=== PATIENT | female | born 1995 | race Caucasian/White ===

== ENCOUNTER 2018-01-03 18:04 | Emergency (ER) | payer BC, MEDICAID, SELFPAY ==
[2018-01-03 18:05] VITALS: BP 145/86; PULSE 88; RESP 16; TEMP 35.8; BMI 41.5
[2018-01-03 18:59] LABS: Internal QC Validated? YES +Cl - CLEAR BKGD; Pregnancy, Urine Negative Negative
--- NOTE | 2018-01-03 19:23 | ED.VISSUMM ---
- ER Visit Summary Date of Service: 01/03/18 Chief Complaint: Dental pain History of Present Illness: The patient is a 22 F presenting for evaluation secondary to dental pain. Patient states this been getting gradually worse over the course last week it is located in her right lower mouth. Not associated with any constitutional symptoms such as fever. Patient states Tylenol does not help she is afraid to take anything else because she might be . Last menstrual cycle however was 2 weeks ago. Physical Examination: Oral exam shows no evidence of trismus. There is widespread dental decay with no evidence of focal abscess. Normal sublingual space, normal Stensen's duct, normal posterior oropharynx. Emergency Department Course and Treatment: Patient presented with dental pain. An hCG was performed was found to be negative. Patient will be treated with Naprosyn and penicillin was instructed to follow-up with a dentist as soon as possible Disposition: Discharge Impression: 1. Odontalgia 2. Dental caries This note was generated with [employer] dictation software. It may contain incorrect words, spelling, and punctuation that were not noted in review of the chart prior to signing ED Disposition - Plan for ED Patient: Disposition: Home or Assisted Living Chief Complaint: Dental Diagnosis: Pain, dental Instructions: ED Tooth Pain Prescriptions: Naproxen [Naprosyn] 500 mg PO BID PRN #20 tab Penicillin V Potassium 500 mg PO 4X/DAY #40 tab Additional Instructions: Followup with a dentist flavio
[2018-01-03] MEDS: Penicillin Vk 250 MG Tablet 500 MG PO (19:35)
[2018-01-03] MEDS: Naproxen 500 MG Tablet PO (19:35)
[2018-01-03 19:36] VITALS: PULSE 88; RESP 16
== END 2018-01-03 19:36 | disposition home or self-care (01) ==
PROVIDERS: Emergency Provider Emergency Medicine
DX: K08.89 Other specified disorders of teeth and supporting structures (principal); K02.9 Dental caries, unspecified
CPT/HCPCS: 81025; 99282

== ENCOUNTER 2018-09-24 19:31 | Emergency (ER) | payer MEDICAID, SELFPAY ==
[2018-09-24 19:33] VITALS: BP 125/81; PULSE 148; RESP 18; TEMP 36.4; O2SAT 97; BMI 40.6
[2018-09-24 19:35] VITALS: TEMP 36.4
[2018-09-24] MEDS: 0.9% Normal Saline 1,000 ML 1000 ML IV ×2 (20:40→21:52)
[2018-09-24] MEDS: proMETHazine 25 MG/ML Syringe 6.25 MG IV (20:40)
[2018-09-24] MEDS: Diphenoxylate/Atrop 1 Tablet 2 TABLET PO (20:56)
[2018-09-24 21:05] LABS: Absolute Lymphocyte Count 0.83 X10^3/ul (0.83-4.51); Absolute Neutrophil Count 9.5 X10^3/uL (2.0-7.7); Basophil# 0.01 X10^3/uL; Basophil% 0.1 % (0-1); Eosinophil# 0.02 X10^3/uL; Eosinophils% 0.2 % (0-5); Hematocrit 41.4 % (37-47); Hemoglobin 14.1 g/dl (12.0-15.0); Lymphocyte # 0.83 X10^3/ul (4.0); Lymphocyte % 7.6 % (19-41); Mean Corp Hgb Conc 34.1 g/gl (32-36); Mean Corpuscular Hgb 26.8 pg (27.0-32.0); Mean Corpuscular Volume 78.7 fL (81-99); Mean Platelet Vol. 9.4 fl (6.2-12.0); Monocyte% 4.6 % (0-10); Neutrophil # 9.52 X10^3/uL (2.7-7.7); Neutrophil % 87.4 % (47-70); Platelet Count 280 K/mm3 (150-450); RBC Distribution Width CV 14.2 % (11.6-14.6); Red Blood Count 5.26 M/mm3 (4.2-5.4); White Blood Count 10.9 K/mm3 (4.4-11.0)
[2018-09-24 21:14] LABS: POSITIVE COUNT NO; POSITIVE DIFFERENTIAL NO; POSITIVE MORPHOLOGY NO
[2018-09-24 21:20] LABS: Anion Gap 8 (5-15); BUN 6 mg/dL (7-18); BUN/Creat Ratio 10.6 RATIO (10-20); Calcium,Total 8.5 mg/dL (8.5-10.1); Chloride 108 mmol/L (98-107); Creatinine, Serum 0.57 mg/dL (0.55-1.02); EST Glomerular Filtration Rate 143 mL/min (>60); Est Glom Filt Rate - Afr Amer 173 mL/min (>60); Estimated Creatinine Clearance 123.48 ml/min; Glucose 108 mg/dL (74-106); Potassium 3.9 mmol/L (3.5-5.1); Sodium Level 137 mmol/L (136-145)
[2018-09-24 21:53] VITALS: BP 102/61; PULSE 110; RESP 16; O2SAT 98
--- NOTE | 2018-09-24 22:26 | ED.VISSUMM ---
- ER Visit Summary Date of Service: 09/24/18 Chief Complaint: [Nausea vomiting and diarrhea] History of Present Illness: The patient is a 23 F [presents to the emergency department with complaint of vomiting that started this morning. Patient then developed diarrhea and has had about 12 episodes of diarrhea. Patient describes some intermittent abdominal pain and cramping. Patient states she cannot keep anything down. Patient had a low-grade fever at home up to 99. Patient denies any recent antibiotic usage. Patient denies any sick contacts. Patient tells me that she is 12 weeks . Patient has had an ultrasound of the that was performed on September 15 and everything looked well at that time. Patient's not had any vaginal bleeding.] Physical Examination: [HEENT-PERRLA, EOMI. Cranial nerves II through XII grossly intact. TMs clear. Mucous membranes moist. No adenopathy. Cardiovascular-regular rate and rhythm without murmur or ectopy Lungs-clear to auscultation, chest wall stable without crepitus or subcu emphysema Abdomen-normoactive bowel sounds, soft, nontender, no rebound or rigidity, no peritoneal signs. Extremities-intact ?4, normal range of motion, normal pulses, atraumatic] Test Results: [CBC with differential obtained showed a white count of 10.9, hemoglobin 14, hematocrit 41, platelets 280. Chemistries unremarkable.] Emergency Department Course and Treatment: [Patient received 2 units of normal saline as well as Zofran and Imodium. Patient had no further vomiting or diarrhea. She was feeling improved. Her tachycardia improved.] Treatment Plan: [Patient will be given a prescription for Phenergan and advised to use Imodium as needed for the diarrhea. Patient to follow-up with primary care physician in 3-5 days] Disposition: [Discharged home in stable condition] Impression: [Viral gastroenteritis] This note was generated with [employer] dictation software. It may contain incorrect words, spelling, and punctuation that were not noted in review of the chart prior to signing ED Disposition - Plan for ED Patient: Chief Complaint: Nausea/Vomiting/Diarrhea Referrals: Chey Fitch MD [Primary Care Provider] -
--- NOTE | 2018-09-24 22:29 | ED.DEP ---
ED Disposition - Plan for ED Patient: Chief Complaint: Nausea/Vomiting/Diarrhea Instructions: ED Gastroenteritis Viral Prescriptions: proMETHazine tablet [Phenergan] 25 mg PO Q6H PRN PRN #10 tab PRN Reason: Nausea Referrals: Chey Fitch MD [Primary Care Provider] - 3-5 Days
[2018-09-24 22:30] VITALS: BP 106/68; BP 84/51; BP 99/53; PULSE 105; PULSE 120; PULSE 122
[2018-09-24] MEDS: 0.9% Normal Saline 1,000 ML 999 ML IV (22:41)
[2018-09-24 23:45] VITALS: BP 108/71; PULSE 88; RESP 16; O2SAT 97
[2018-09-24 23:55] VITALS: BP 108/59; BP 86/48; BP 97/66; PULSE 114; PULSE 117; PULSE 95
[2018-09-25] MEDS: 0.9% Normal Saline 1,000 ML 999 ML IV (00:12)
[2018-09-25 00:48] VITALS: BP 96/58; PULSE 98; RESP 16; O2SAT 98
--- OUTSIDE RECORDS SUMMARY | 2018-11-10 15:26 | XMS RPT_ITS ---
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 ENCOUNTER GUARANTOR PAYER SUBSCRIBER SOURCE 09/24/2018 TAHIRA C Primary TAHIRA C Bliss [id number] Insurance:CARESOURCEP BRIGGSDOB: [facility] Number: [id number] Hospital [id number]: [phone] [id number] Repository [phone] () Date:2018-09-24[address]ATTN: [place] [address]MY: 09/24/2018 Secondary NOT GIVENUNK Bliss Insurance:SELF PAY [facility] Number: Effective Repository Date:2018-09-24 08/24/2018 TAHIRA C Primary NOT GIVENUNK Bliss [id number] Insurance:SELF PAY [facility] [id number]: (218) Number: Effective Repository [phone] () Date:2018-08-24 01/03/2018 TAHIRA C Primary CRYSTAL K Bliss [id number] Insurance:ANTHEMPolic BRIGGSDOB: [facility]: [id number] Repository [place] [address]Tnb: Date:[id number], [place] () [address]: 01/03/2018 Secondary TAHIRA C Dhruv Insurance:CARESOURCEP BRIGGSDOB: [facility] Number: [id number] Hospital [id number] Repository Date:2018-01-03[address]ATTN: [facility]S [facility] [place] [address]RV: 01/03/2018 Tertiary NOT GIVENUNK Bliss Insurance:SELF PAY [facility] Number: Effective Repository Date:2018-01-03 12/08/2017 TAHIRA Vines Primary CRYSTAL K [facility] BRIGGSDOB: [facility] y Number: Effective [id number] Date:2017-10-13 [address]RD Repository [place], [place] [id number] [address]Tel: [phone] Name:Waldo Wu [place] [phone] () [phone]: () ()
== END 2018-09-25 00:57 | disposition home or self-care (01) ==
LOC: ED 20:48
PROVIDERS: Emergency Provider Emergency Medicine; Family Provider Obstetrics & Gynecology; PCP Obstetrics & Gynecology
DX: A08.4 Viral intestinal infection, unspecified (principal); O26.891 Other specified pregnancy related conditions, first trimester; Z3A.12 12 weeks gestation of pregnancy
CPT/HCPCS: 80048; 85025; 96361; 96374; 99284; J7030

== ENCOUNTER 2018-11-30 07:44 | Emergency (ER) | payer OTHER, MEDICAID, SELFPAY ==
[2018-11-30 07:45] VITALS: BP 145/79; PULSE 97; RESP 14; TEMP 36.8; O2SAT 99; BMI 42.1
--- NOTE | 2018-11-30 08:23 | ED.VISSUMM ---
- ER Visit Summary Date of Service: 11/30/18 Chief Complaint: fall, 22 weeks History of Present Illness: The patient is a 23 F presents for evaluation after a fall this morning. Patient states she was getting out of her truck at work and slipped on the ice, falling and landing on her left hip. She was able to get up and ambulate afterwards. She is complaining of left hip pain. It is dull and aching. Patient is 22 weeks and thus was encouraged to come in for further evaluation. Patient denies any loss of consciousness, loss of use of her lower extremities, neck pain, back pain, or any other complaints. She denies any abdominal pain, nausea or vomiting, vaginal bleeding or discharge. She has been feeling the baby move. Physical Examination: Vital signs: afebrile, initial blood pressure 145/79, repeat 107/61, no hypoxia on room air General: well nourished, well developed, in no distress Skin: warm, dry, no rash, no pallor HEENT: normocephalic and atraumatic; PERRL, EOMI, moist mucous membranes Cardiovascular: regular rate and rhythm without murmurs, no peripheral edema, 2+ pulses all distal extremities Respiratory: No increased work of breathing, lungs are clear to auscultation bilaterally, no rales, rhonchi or wheezing Abdominal: Abdomen is soft, nontender with normoactive bowel sounds, no guarding or rebound, no masses MSK: Moves all extremities, no deformities, normal strength, 2 small abrasions on the left hip, no hematoma or ecchymosis, full active range of motion of the hip, no tenderness with logroll, full internal and external rotation of the hip. Distal sensation, motor and pulses intact Neuro: Awake and alert, oriented ?4. No facial droop, sensation and motor function intact and symmetric Heart tones 147 Test Results: [] Emergency Department Course and Treatment: She was given Tylenol for pain. Patient has no findings on exam that require imaging or further workup. Patient has good heart tones of 147. She was discussed with COMMERCIAL PROJECT MANAGER simplex operator Jennifer Maravilla the [facility], and patient will follow up with them if any worsening of her condition. Worker's Comp. paperwork filled out and patient was discharged home. Treatment Plan: [] Disposition: [] Impression: Left hip contusion status post fall, 22 weeks This note was generated with [employer] dictation software. It may contain incorrect words, spelling, and punctuation that were not noted in review of the chart prior to signing ED Disposition - Plan for ED Patient: Disposition: Home or Assisted Living Instructions: ED Mechanical Fall, ED Contusion Hip Referrals: Chey Fitch MD [STAFF PHYSICIAN] - Jennifer Maravilla CNM [Certified Nurse Apparel Merchandiser] - As Needed Additional Instructions: Use Tylenol as needed for pain. Please follow-up with the women's center if you have any concern about your , including abdominal pain, vaginal bleeding or spotting, pelvic pain or any other concerns. If you have any worsening of your condition or any new concerning symptoms, please return immediately to the emergency department for another evaluation.
[2018-11-30 09:13] VITALS: BP 107/61
[2018-11-30] MEDS: Acetaminophen 325 MG Tablet 650 MG PO (09:14)
--- NOTE | 2018-11-30 10:46 | ED.RN ---
DISCHARGE INSTRUCTIONS GIVEN TO AND REVIEWED WITH PATIENT, PATIENT DENIES QUESTIONS OR CONCERNS AND VOICES UNDERSTANDING OF DISCHARGE INSTRUCTIONS. PT AMBULATES OUT OF ROOM WITHOUT DIFFICULTY.
== END 2018-11-30 10:46 | disposition home or self-care (01) ==
PROVIDERS: Emergency Provider Emergency Medicine
DX: S70.02XA Contusion of left hip, initial encounter (principal); O9A.212 Injury, poisoning and certain other consequences of external causes complicating pregnancy, second trimester; W00.0XXA Fall on same level due to ice and snow, initial encounter; Y93.9 Activity, unspecified; Y92.89 Other specified places as the place of occurrence of the external cause; Y99.0 Civilian activity done for income or pay; Z3A.22 22 weeks gestation of pregnancy
CPT/HCPCS: 99283

== ENCOUNTER 2019-04-11 18:40 | Inpatient (IN) | payer OTHER, MEDICAID, SELFPAY ==
[2019-04-11 18:39] VITALS: BMI 45.1
[2019-04-11] MEDS: Lactated Ringers 1,000 ML 50 ML IV ×3 (18:50→20:10)
[2019-04-11 19:14] LABS: Absolute Neutrophil Count 8.9 X10^3/uL (2.0-7.7); Basophil# 0.01 X10^3/uL; Basophil% 0.1 % (0-1); Eosinophil# 0.15 X10^3/uL; Eosinophils% 1.2 % (0-5); Hematocrit 38.3 % (37-47); Hemoglobin 12.5 g/dl (12.0-15.0); Lymphocyte % 18.5 % (19-41); Mean Corp Hgb Conc 32.6 g/gl (32-36); Mean Corpuscular Hgb 25.1 pg (27.0-32.0); Mean Corpuscular Volume 76.9 fL (81-99); Mean Platelet Vol. 9.7 fl (6.2-12.0); Monocyte# 0.97 X10^3/uL; Monocyte% 7.8 % (0-10); Neutrophil # 8.94 X10^3/uL (2.7-7.7); Neutrophil % 71.9 % (47-70); POSITIVE COUNT NO; POSITIVE DIFFERENTIAL NO; POSITIVE MORPHOLOGY NO; Platelet Count 262 K/mm3 (150-450); RBC Distribution Width CV 15.2 % (11.6-14.6); RBC Distribution Width SD 42.3 fl (35.1-43.9); Red Blood Count 4.98 M/mm3 (4.2-5.4); White Blood Count 12.4 K/mm3 (4.4-11.0)
--- NOTE | 2019-04-11 19:31 | PCM.HP.OB ---
History Date of Admission: 04/11/19 Final DIOGENES: 04/06/19 Final DIOGENES Source: US <20 weeks Gestational age: 40 Weeks and 5 Days History of this : This is a 23 year-old, G 2P1 at 40.5 weeks gestation presents to labor and delivery complaining of contractions and questionable leaking of fluid at approximately 5:30 PM on 04/11/2019. Is no other complaints today. Was found to be 5 cm with regular contractions. Patient admitted for labor. Allergies orange juice Adverse Reaction (Verified 04/11/19 19:14) Nausea/Vom/Diarrhea Smoking Status: Never smoker Alcohol: None Number of Fetus(es): 1 Heart Tracin bpm, moderate variability, positive accelerations, no decelerations. Category 1 reactive TOCO Analysis: Every 2 to 4 minutes History Past Pregnancies: Past Pregnancies Delivery Date Name GA/Weeks Outcome Route Weight Infant Gender Labor Length Anesthesia Delivery Location Provider FOB Labs: A negative, hep B negative, HIV negative, syphilis negative, rubella immune, GBS negative Expected Infant Delivery Method: Spontaneous Vaginal Review of Systems Constitutional: Denies: Anorexia Gastrointestinal: Reports: Abdominal Pain - from ctx Physical Exam General: Alert, Oriented x3 Abdomen: Soft, Non-Distended, Gravid Neurological: Cranial nerves II-XII grossly intact NETWORK SYSTEMS ADMINISTRATOR: Normal external genitalia Estimated gestational size: Appropriate for gestational size Presentation: Cephalic Cervix Dilation (cm): 5 Station: -1 Effacement (%): 80 Assessment/Plan All Active Problems Physical exam, pre-employment (Acute) This is a 23 year-old, G 2P1 at 40.5 weeks gestation presents in labor. Admit to labor and delivery Monitor heart rate and toco Epidural or nitrous oxide for pain management if requested AROM performed clear fluid moderate amount Anticipate normal spontaneous vaginal delivery
[2019-04-11] MEDS: fentaNYL-bupivacaine (epidural) 100 ML BAG EPIDURAL (20:23)
[2019-04-11] MEDS: Oxytocin 30 units/NS 500 ml 30 UNITS/500 ML IV.SOLN IV (22:34)
[2019-04-12] MEDS: Lactated Ringers 1,000 ML 50 ML IV
[2019-04-12] MEDS: fentaNYL-bupivacaine (epidural) 100 ML BAG EPIDURAL (00:46)
[2019-04-12] MEDS: Oxytocin 30 units/NS 500 ml 30 UNITS/500 ML IV.SOLN 334 UNITS IV (02:19)
--- NOTE | 2019-04-12 02:33 | PCM.OPRPT ---
Vaginal Delivery Maternal Presentation: Active Labor Amniotic Membrane Rupture Type: Artificial Amniotic Fluid Description: Clear Final DIOGENES: 04/06/19 Final DIOGENES Source: US <20 weeks Gestational age: 40 Weeks and 6 Days Date of Procedure: 04/12/19 Pre-Operative Diagnosis: Term gestatation, active labor Post-Operative Diagnosis: same, live female Surgery/ Procedure Performed: Spontaneous Vaginal Delivery Type of Anesthesia: Epidural Description of Procedure: Normal spontaneous vaginal delivery without complication. Infant was born with good maternal efforts and gentle downward traction. Delayed cord clamping was performed while infant was resting on maternal abdomen. Placenta delivered without complication Presentation: Vertex Placental Delivery Description: Spontaneous Placenta Disposition: [facility] Cord Vessel Description: 3 Vessels Cord Entanglement: None Drain: Narvaez to straight drain Estimated Blood Loss: 100 A gender: Female (1 minute): 8 (5 minute): 9 Episiotomy Description: None Laceration: Vaginal Extension/lac, 1st degree - repaired with 3-0 Rapide Medications given after delivery: IV Pitocin Complications: None
[2019-04-12] MEDS: Oxytocin 30 units/NS 500 ml 30 UNITS/500 ML IV.SOLN 167 UNITS IV (02:50)
[2019-04-12 05:30] VITALS: BP 98/57; PULSE 98; RESP 20; TEMP 37.4
[2019-04-12] MEDS: 0.9% Saline Lock 10 ML Syringe IV (05:48)
[2019-04-12 08:23] VITALS: BP 110/61; PULSE 96; RESP 16; TEMP 36.3; O2SAT 98
[2019-04-12] MEDS: Ibuprofen 600 MG Tablet PO ×2 (08:31→22:16)
[2019-04-12 12:20] VITALS: BP 101/55; PULSE 78; RESP 16; TEMP 36.6; O2SAT 97
[2019-04-12 15:21] VITALS: BP 115/64; PULSE 91; RESP 16; TEMP 36.5; O2SAT 98
[2019-04-12 21:02] VITALS: BP 111/58; PULSE 80; RESP 16; TEMP 36.2; O2SAT 96
[2019-04-12] MEDS: Acetaminophen 500 MG Tablet 1000 MG PO (21:08)
[2019-04-12 23:40] VITALS: BP 101/54; PULSE 87; RESP 17; TEMP 37; O2SAT 99
[2019-04-13 08:51] VITALS: BP 96/56; PULSE 59; RESP 16; TEMP 36.3
[2019-04-13 14:00] VITALS: BP 105/64; PULSE 69; RESP 16; TEMP 36.4
--- NOTE | 2019-04-13 14:04 | PCM.PN.OB ---
Subjective: pain well controlled, average lochia. - Physical Exam General: Alert, Cooperative, No apparent distress Vital Signs Temp Pulse Resp BP Pulse Ox 97.3 F L 59 L 16 96/56 L 99 04/13/19 08:51 04/13/19 08:51 04/13/19 08:51 04/13/19 08:51 04/12/19 23:40 Oxygen Delivery Method Room Air Weight: 112.037 kg Body Mass Index (BMI) 45.1 Intake and Output for Last 24 Hours 04/11/19 04/12/19 04/13/19 23:59 23:59 23:59 Intake Total 3747 / 3747 Output Total 2900 / 2900 Balance 847 / 847 Medical Necessity - Tobacco Use Smoking Status: Never smoker Assessment/Plan All Active Problems Physical exam, pre-employment (Acute) day #1 status post vaginal delivery. Patient is doing well, routine instructions and care. Social service consult was pending when I saw the patient this morning. Patient continues to work on breast-feeding. Follow-up in the office in 1-2 and 6 weeks or as needed.
--- NOTE | 2019-04-13 14:06 | DCINST_ITS ---
Discharge Diet: No Restrictions Discharge Activity: Return to Normal Activity, May not drive while taking narcotic pain medications., May Shower May resume sexual activity in: 4-6 weeks Additional Activity Instructions:: Nothing in the vagina for 4-6 weeks. You may return to work/school in 6 weeks. Call your doctor if your incision/area has: Continuous Slow Oozing, Sudden Increased Bleeding, Increased Pain/ Swelling, Increased Redness, Foul Smelling Discharge Additional Instructions: If you experience any of the following, contact your healthcare provider. * Bleeding that soaks a pad every hour for 2 hours * Fever 100.4 or higher * Unrelieved incision or abdominal pain * Swelling, redness, discharge or bleeding from your incision or episiotomy site * Your incision begins to separate * Problems urinating (including inability to urinate or burning while urinating). * Visual changes * Severe headache * Flu-like symptoms * Pain or redness in one of both of your breasts * Pain, warmth, tenderness or swelling in your legs, especially the calf area * Frequent nausea and vomiting * Symptoms of depression or anxiety If you experience any of the following, call 911 or go to the nearest Emergency Room. * Chest pain * Problems breathing * Seizure activity * Partial or complete paralysis of a body part, slurred speech, weakness or drooping of the face, or a sudden inability to walk or hold your balance Allergies/Adverse Reactions: Allergies orange juice Adverse Reaction (Verified 04/11/19 19:14) Nausea/Vom/Diarrhea Medications to take at Discharge Ibuprofen [Motrin] 600 mg PO Q6H PRN #60 tab 04/13/19 The following prescriptions were given: Ibuprofen [Motrin] 600 mg PO Q6H PRN #60 tab PRN Reason: Pain Transmission Status: Pending to [id number] Please Follow Up With: Effie Faulkner MD - [phone] When: Call to make an appointment in our office in 1-2 and 6 weeks. Primary Care Physician: Care Physician,No Primary [Primary Care Provider] - Test Results: Test results from this visit will be discussed in further detail at your follow- up appointment, if applicable.
--- NOTE | 2019-04-22 18:36 | NURSING ---
Mother had consult and was doing well. Mother and baby are scheduled again friday for another weight check. She really liked ernst on nights, she said she really to her time and helped her understand her breast pump.
== END 2019-04-13 14:55 | disposition home or self-care (01) | DRG 807 ==
LOC: WPOUT 18:43
PROVIDERS: Admitting Provider Obstetrics & Gynecology; Referring Provider Obstetrics & Gynecology; Visit Provider Obstetrics & Gynecology
DX: O70.0 First degree perineal laceration during delivery (principal); Z37.0 Single live birth; Z3A.40 40 weeks gestation of pregnancy
CPT/HCPCS: 59025; 59050; 85025; 86850; 86900; 99218; J7120; A4216; G0378

== ENCOUNTER → 2019-12-20 15:09 | Outpatient (CLI) | payer MEDICAID, SELFPAY ==
[2019-12-20 15:09] VITALS: BMI 45.1
--- NOTE | 2019-12-20 15:10 | RAD_ITS ---
STUDY: X-RAY - LEFT KNEE REASON FOR EXAM: Female, 24 years old. No injury, pain TECHNIQUE: 4 view(s) of the knee. COMPARISON: Comparison is made with prior examination dated September 14, 2010. FINDINGS: Normal visualized distal femur. Normal visualized proximal tibia and fibula. Normal proximal tibiofibular articulation. Normal medial femorotibial compartment. Normal lateral femorotibial compartment. Normal patellofemoral articulation. The soft tissue structures are unremarkable. RAD/Knee 4 or More Views IMPRESSION: Normal x-ray examination of the knee. Electronically Signed: Maverick Trimble, at 15:45 EDT , Service support ,
== END ==
PROVIDERS: Referring Provider Physician Assistant; Visit Provider Physician Assistant
DX: M25.561 Pain in right knee (principal)
CPT/HCPCS: 73564

== ENCOUNTER 2020-05-22 07:31 | Emergency (ER) | payer MEDICAID, SELFPAY ==
[2020-05-20 11:55] VITALS: BMI 45.1
[2020-05-22 07:32] VITALS: BP 131/78; PULSE 98; RESP 18; TEMP 36.6; O2SAT 95; BMI 47.2
--- NOTE | 2020-05-22 08:07 | ED.VIS.GEN ---
History of Present Illness Chief Complaint: Ear Problem Informant: Patient Narrative: Patient presents emergency department with pain in the right ear. Patient states that on Friday she [facility] and was diagnosed with an ear infection. She was placed on medications that she cannot recall the specifics regarding them. From review of the chart, I see she was diagnosed with otitis media and otitis externa. She was placed on amoxicillin 1000 mg twice a day and Otosporin otic. She states she has been using Tylenol Motrin but cannot control the pain. No fevers. No drainage from the ear. Past Medical History - Allergies and Home Meds Allergies/Adverse Reactions: Allergies orange juice Adverse Reaction (Verified 05/22/20 07:35) Nausea/Vom/Diarrhea Primary Care Physician: Care Physician,No Primary [Primary Care Provider] - Smoking Status: Never smoker Review of Systems General: Denies: Chills, Fever, Sweats Eyes: Denies: Visual changes - bilaterally, Diplopia ENT: Reports: Right ear pain. Denies: Rhinorrhea, Sore throat Cardiovascular: Denies: Chest pain, Palpitations Respiratory: Denies: Dyspnea, Cough, Dyspnea on exertion Gastrointestinal: Denies: Abdominal pain, Nausea, Vomiting, Diarrhea, Melena, Hematochezia Genitourinary: Denies: Dysuria, Hematuria, Frequency Musculoskeletal: Denies: Back pain, Extremity Pain Skin: Denies: Rash, Wounds Neurological: Denies: Headache, Weakness, Numbness Physical Exam Vital Signs/Narrative: Vital Signs Temp Pulse Resp BP Pulse Ox 05/22/20 07:32 97.8 F 98 18 131/78 H 95 Inital Vital Signs reviewed: Yes General: Well nourished, Well developed, No Acute Distress Head: Normocephalic, Atraumatic Eyes: Perrl, EOMI ENT: Moist mucous membranes, No rhinorrhea, - - Ear canal is swollen with some mild debris. I can still visualize the tympanic membrane. It is erythematous and bulging. There is not appear to be any rupture at this time. There is no mastoid tenderness. Neck: Supple, Nontender Cardiovascular: Regular rate, Regular rhythm, No murmurs Respiratory: No distress, CTA bilaterally, Chest nontender Abdomen: Soft, Nontender, Nondistended, Normal bowel sounds Back: Nontender, Normal Inspection Extremities: Nontender, No edema Skin: Normal color, No rash Neurological: Alert, Oriented x3, Cranial nerves II-XII grossly intact, Normal Strength, Normal Sensation Psychological: Normal affect, Normal Mood Diagnostic/Tx/Re-eval - Medical Decision Making Patient should continue her antibiotics. I can write for a few [place]. ED Disposition - Plan for ED Patient: Disposition: Home or Assisted Living Diagnosis: Otitis externa of right ear, Otitis media, right, Acute pain of right ear Instructions: ED Otitis Externa, ED Otitis Media Antibiotic Treatment Adult Prescriptions: Hydrocodone Bitart/Apap 5-325 [[place] 5MG-325MG] 1 tablet PO Q4H PRN PRN 2 Days #10 tablet PRN Reason: Pain Transmission Status: Received by [id number]
[2020-05-22] MEDS: HYDROcodone Bitartrate/Apap 5/325 Tablet PO (08:16)
== END 2020-05-22 08:25 | disposition home or self-care (01) ==
LOC: ED 08:23
PROVIDERS: Emergency Provider Emergency Medicine; PCP Internal Medicine
DX: H60.91 Unspecified otitis externa, right ear (principal); H66.91 Otitis media, unspecified, right ear
CPT/HCPCS: 99283

== ENCOUNTER → 2020-09-18 13:52 | Outpatient (CLI) | payer OTHER, MEDICAID, SELFPAY ==
[2020-08-01 13:16] VITALS: BMI 46.5
== END ==
PROVIDERS: PCP Internal Medicine; Referring Provider Physician Assistant; Visit Provider Physician Assistant
DX: R68.89 Other general symptoms and signs (principal)
CPT/HCPCS: 87635; U0003

== ENCOUNTER → 2021-06-29 14:22 | Outpatient (CLI) | payer MEDICAID, SELFPAY ==
[2021-06-29 14:38] LABS: Hematocrit 41.9 % (37-47); Hemoglobin 13.5 g/dL (12.0-15.0); Mean Corp Hgb Conc 32.2 g/dL (32-36); Mean Corpuscular Hgb 25.4 pg (27.0-32.0); Mean Corpuscular Volume 78.9 fL (81-99); Mean Platelet Vol. 8.7 fl (6.2-12.0); Platelet Count 337 K/mm3 (150-450); RBC Distribution Width CV 14.2 % (11.6-14.6); RBC Distribution Width SD 40.7 fl (35.1-43.9); Red Blood Count 5.31 M/mm3 (4.2-5.4); White Blood Count 10.3 K/mm3 (4.4-11.0)
[2021-06-29 14:57] LABS: Hemoglobin A1c 5.2 % (3.8-5.6)
[2021-06-29 15:35] LABS: hCG Titer Quant., Serum < 1 mIU/mL (1-3)
[2021-06-29 15:41] LABS: Estradiol 121.6 pg/mL; Follicle Stimulating Hormone 1.5 mIU/mL; Luteinizing Hormone 0.8 mIU/mL; Prolactin 8.7 ng/mL; T4 Free Direct 0.83 ng/dL (0.76-1.46); Thyroid Stim Hormone (TSH) 1.78 uIU/mL (0.358-3.74)
== END ==
PROVIDERS: PCP Internal Medicine; Visit Provider Obstetrics & Gynecology
DX: N93.9 Abnormal uterine and vaginal bleeding, unspecified (principal)
CPT/HCPCS: 36415; 82670; 83001; 83002; 83036; 84146; 84402; 84439; 84443; 84702; 85027

== ENCOUNTER → 2023-04-25 | Outpatient (CLI) | payer MEDICAID, SELFPAY ==
[2023-05-02 15:59] LABS: HPV Reflexed? NOT INDICATED
== END | disposition home or self-care (01) ==
LOC: LABSPEC 14:43
PROVIDERS: PCP Internal Medicine; Referring Provider Obstetrics & Gynecology; Visit Provider Obstetrics & Gynecology
DX: Z12.4 Encounter for screening for malignant neoplasm of cervix (principal)
CPT/HCPCS: 88175; G0145

== ENCOUNTER 2024-04-17 08:39 | Outpatient (CLI) | payer MEDICAID, SELFPAY ==
[2024-04-17 08:53] VITALS: BP 131/72; PULSE 94; PULSE 96; RESP 15; TEMP 36.5; O2SAT 97; O2SAT 99
--- NOTE | 2024-04-17 10:11 | US_ITS ---
STUDY: OBSTETRICAL ULTRASOUND - BIOPHYSICAL PROFILE REASON FOR EXAM: Female, 28 years old decreased movement LMP: Unknown. PRIOR ULTRASOUND: None. TECHNIQUE: Transabdominal TECHNICAL QUALITY: Adequate. FINDINGS: There is a single intrauterine fetus. The fetus is in a cephalic presentation. There is demonstrated cardiac activity with a heart rate of 135 bpm. There is a normal amniotic fluid volume. The largest amniotic fluid pocket measures 5.1 cm. The amniotic fluid index (SONIYA) is 13.6 cm. The placenta is anterior in location and is not low lying. There are Grade 1 placental changes. age by current US: 32 weeks, 1 days. DIOGENES by current US: 06/11/2024. BIOPHYSICAL PROFILE: Breathing Movements (FBM): 2 Gross Body Movements (GBM): 2 Tone (FT): 2 Amniotic Fluid Volume (AFV): 2 TOTAL SCORE: US/Biophysical Prof W/O Non Stres IMPRESSION: Normal biophysical profile of 05/20. Electronically Signed: Miguel Bello MD at 11:02 EDT ,
[2024-04-17 10:12] VITALS: BMI 50.1
--- NOTE | 2024-04-17 10:55 | OB.TRI.HP_ITS ---
HPI - General General Date of Admission: 04/17/24 Date of Service: 04/17/24 Chief Complaint: Repeat testing HPI Narrative TAHIRA JACKSON, is a 28 F who presents repeat BPP. 03/22 in office yesterday Today 05/20 with reactive NST Maternal Data Information Final DIOGENES: 06/11/24 Gestational age: 32+1 PFSH PFSH Medical History Seasonal allergies Home Medications ?Medication ?Instructions ?Recorded ?Last Taken ?Type aspirin 81 mg tablet,delayed 81 mg PO DAILY 04/17/24 04/16/24 History release vit no.133-ferrous tab PO 04/17/24 04/16/24 History fumarate 28 mg-folic acid 800 mcg tablet () Allergy/AdvReac Type Severity Reaction Status Date / Time orange juice AdvReac Nausea/Vom/ Verified 04/17/24 10:14 Diarrhea Family History Brother Asthma Sister Asthma Anxiety Depression Mother Anxiety Arthritis Grandmother Breast cancer Aunt CVA (cerebral vascular accident) Grandfather Heart disease Surgical History History of cholecystectomy History of wisdom tooth extraction Social History household members: significant other and children number of children: 2 current occupational status: employed current occupation: [email or web address] history of recent travel: No sexually active: Yes Smoking Status: Never smoker alcohol intake: never substance use type: does not use what type of physical activity do you participate in: walking seatbelt use: always do you feel safe at home: Yes additional social history: Signifigant other - [place] History 4 Elective abortions Hx Para 2 Spontaneous abortions Hx # Term Pregnancies Ectopic pregnancies Hx # Pregnancies Multiple births # of living children 2 Past Pregnancies Del. Date Name GA/Weeks Outcome Route Bth Weight Infant Gen Labor Lgth Anesthesia Del Locatn Provider FOB 03/27/17 [place] 04/12/19 [place] NST FHR Rate Baby A Baseline: 135 Variability:: Moderate Accelerations:: 15 x 15 Decelerations:: None NST Reactive:: Yes FHR Category:: Category I Assessment & Plan (1) 32 weeks gestation of : (2) Abnormal test: PLAN: Repeat BPP 05/20 PLAN: Plan Weekly nsts in office
== END 2024-04-17 10:45 | disposition home or self-care (01) ==
LOC: WPOUT 08:41 → WP 08:42
PROVIDERS: PCP Internal Medicine; Referring Provider Obstetrics & Gynecology; Visit Provider Obstetrics & Gynecology
DX: O28.9 Unspecified abnormal findings on antenatal screening of mother (principal); Z79.82 Long term (current) use of aspirin; Z3A.32 32 weeks gestation of pregnancy
CPT/HCPCS: 59025; 59050; 76819; 99221; G0378

== ENCOUNTER 2024-05-27 19:17 | Inpatient (IN) | payer MEDICAID, SELFPAY ==
--- NOTE | 2024-05-27 19:31 | HP.PCM.OB_ITS ---
HPI - General General Date of Admission: 05/27/24 HPI Narrative TAHIRA JACKSON, is a 28 F who presents for scheduled induction of labor for Obesity (pregravid BMI 48), and IUGR. EFW 6%. Maternal Data Information DIOGENES Calculator Estimated Delivery Date Method Current WG Current Estimate 06/11/24 Manual 37w 6d PFSH PFSH Medical History Seasonal allergies Home Medications ?Medication ?Instructions ?Recorded ?Last Taken ?Type aspirin 81 mg tablet,delayed 81 mg PO DAILY 04/17/24 04/16/24 History release vit no.133-ferrous tab PO 04/17/24 04/16/24 History fumarate 28 mg-folic acid 800 mcg tablet () Allergy/AdvReac Type Severity Reaction Status Date / Time orange juice AdvReac Nausea/Vom/ Verified 04/17/24 10:14 Diarrhea Family History Brother Asthma Sister Asthma Anxiety Depression Mother Anxiety Arthritis Grandmother Breast cancer Aunt CVA (cerebral vascular accident) Grandfather Heart disease Surgical History History of cholecystectomy History of wisdom tooth extraction Social History household members: significant other and children number of children: 2 current occupational status: employed current occupation: [employer] history of recent travel: No sexually active: Yes Smoking Status: Never smoker alcohol intake: never substance use type: does not use what type of physical activity do you participate in: walking seatbelt use: always do you feel safe at home: Yes additional social history: Signifigant other - Zenas History 4 Elective abortions Hx Para 2 Spontaneous abortions Hx # Term Pregnancies Ectopic pregnancies Hx # Pregnancies Multiple births # of living children 2 Past Pregnancies Del. Date Name GA/Weeks Outcome Route Bth Weight Gen Labor Lgth Anesthesia Del Locatn Provider FOB 03/27/17 [place] 04/12/19 [place] NST FHR Rate Baby A Baseline: 140 Variability:: Moderate Accelerations:: 15 x 15 Decelerations:: None NST Reactive:: Yes ROS Eyes Eyes: Denies blurry vision, change in vision or spots in vision ENT HEENT: Denies dizziness or headache(s) Cardiovascular Cardiovascular: Denies abdominal pain, chest pain or dyspnea Respiratory/Chest Respiratory/Chest: Denies cough, dyspnea, shortness of breath at rest or shortness of breath with exertion Gastrointestinal Gastrointestinal: Denies abdominal pain, diarrhea or vomiting Genitourinary Genitourinary: Denies change in urinary stream, difficulty urinating or dysuria Musculoskeletal Musculoskeletal: Reports none Integumentary Integumentary: Denies rash Neurologic Neurologic: Denies dizziness, headache(s), memory loss or weakness Psychiatric Psychiatric: Reports none Physical Exam Const alert, oriented x3 and no apparent distress General Appearance: cooperative Orientation / Consciousness: awake Exam Limitations: no limitations HEENT normocephalic Head and Scalp: normal to inspection Eyes General Eye: normal appearance of both eyes Neck full ROM and no lymphadenopathy Lymph Lymphatic: no lymphadenopathy noted Chest inspection of chest normal Resp normal respiratory effort, normal air movement and clear to auscultation bilaterally Effort and Inspection: able to speak in complete sentences and symmetric chest movement Cardio regular rate and regular rhythm GI normal to inspection, nondistended, normoactive bowel sounds Manual OB Exam: presentation cephalic, dilated 4, effaced 80 and station 0 Amniotic Fluid: clear amniotic fluid Back/Spine normal ROM Extremity full ROM and no calf tenderness Skin no rashes or lesions noted General Skin Exam: no breakdown Neuro oriented x3 and CN's II-XII intact bilaterally Psych mental status grossly normal and thought process normal Labs Labs Labs: Blood Type A NEGATIVE Antibody Screen NEGATIVE Hct 41.9 % (37-47) Hgb 13.5 g/dL (12.0-15.0) VZV IgG Antibody 710 index (Immune >165) Chlamydia DNA (MARISELA) Negative (Negative) N.gonorrhoeae DNA (MARISELA) Negative (Negative) Rhogam given: Yes GBS positive Assessment & Plan (1) 37 weeks gestation of : (2) Encounter for induction of labor: (3) IUGR (intrauterine growth restriction) affecting care of mother: (4) Obesity affecting : (5) Positive GBS test: (6) Encounter for supervision of high risk in third trimester, antepartum: PLAN: Plan Admit to labor and delivery EFW 6% Routine labs GBS positive- Start PCN 5 million units IV now Anticipate placement of atkins bulb Start Pitocin 2 mu/min and increase per policy Pain medications when indicated Dr. Yeung assuming management over patient
[2024-05-27] MEDS: Lactated Ringers 1,000 ML 50 ML IV (20:00)
[2024-05-27 20:15] LABS: Absolute Lymphocyte Count 3.16 X10^3/uL (0.83-4.51); Absolute Neutrophil Count 9.3 X10^3/uL (2.0-7.7); Basophil# 0.08 X10^3/uL; Basophil% 0.6 % (0-1); Eosinophil# 0.19 X10^3/uL; Eosinophils% 1.4 % (0-5); Hematocrit 38.7 % (37-47); Hemoglobin 12.6 g/dL (12.0-15.0); Lymphocyte # 3.16 X10^3/ul (0.83-4.51); Lymphocyte % 23.4 % (19-41); Mean Corp Hgb Conc 32.6 g/dL (32-36); Mean Corpuscular Hgb 25.6 pg (27.0-32.0); Mean Corpuscular Volume 78.5 fL (81-99); Mean Platelet Vol. 9.7 fl (6.2-12.0); Monocyte# 0.75 X10^3/uL; Monocyte% 5.5 % (0-10); NRBC Flagged by Analyzer 0 % (0-5); Neutrophil # 9.25 X10^3/uL (2.7-7.7); Neutrophil % 68.4 % (47-70); Platelet Count 292 K/mm3 (150-450); RBC Distribution Width CV 14.6 % (11.6-14.6); RBC Distribution Width SD 41.3 fl (35.1-43.9); Red Blood Count 4.93 M/mm3 (4.2-5.4); White Blood Count 13.5 K/mm3 (4.4-11.0)
[2024-05-27 20:23] VITALS: PULSE 80; RESP 16; TEMP 37.2; O2SAT 99
[2024-05-27 20:24] VITALS: BP 121/70; PULSE 83
[2024-05-27 20:39] VITALS: BMI 52.1
[2024-05-27 20:50] LABS: Syphilis Antibodies Non-reactive
[2024-05-27] MEDS: miSOPROStol 25 MCG TABLET PO (21:01)
--- NOTE | 2024-05-27 22:49 | PCM.PN.BLA ---
Progress Note at bedside. patient doing well and offers no complaints. Assessment & Plan Assessment/Plan (1) Encounter for supervision of high risk in third trimester, antepartum: PLAN: Intracervical atkins inserted in usual fashion and filled with 30 cc saline. Start PCN with Pitocin. Pitocin per protocol 4 hours after 1st dose of cytotec. (2) Positive GBS test: (3) Obesity affecting : (4) IUGR (intrauterine growth restriction) affecting care of mother: (5) Encounter for induction of labor: (6) 37 weeks gestation of :
[2024-05-27 23:41] VITALS: BP 121/66; PULSE 76; RESP 16; TEMP 36.4
[2024-05-28] VITALS (54 sets, daily range): BP systolic 97–141; BP diastolic 53–85; PULSE 72–104; RESP 14–18; TEMP 36.1–37.1; O2SAT 82–100
[2024-05-28] MEDS: Penicillin G Pot 5,000,000 UNITS in 0.9% Normal Saline (100mL MB+) 100 ML 150 UNITS IV (01:00)
[2024-05-28] MEDS: LACTATED RINGERS 500 ML 999 ML IV (02:07)
[2024-05-28] MEDS: Amnioinfusion- 0.9% NS 1,000 ML IV.SOLN. 1 ML INTRA-UTER (02:32)
[2024-05-28] MEDS: Penicillin G 3,000,000 Units 50 ML 100 UNITS IV ×3 (06:10→13:46)
[2024-05-28] MEDS: Oxytocin 15 Units/NS 250ml 15 UNITS/250 ML IV.SOLN 2 UNITS IV (06:40)
[2024-05-28] MEDS: Lactated Ringers 1,000 ML 50 ML IV (12:41)
[2024-05-28] MEDS: Lactated Ringers 1,000 ML 999 ML IV (12:42)
[2024-05-28] MEDS: Lactated Ringers 1,000 ML 200 ML IV (13:41)
[2024-05-28] MEDS: fentaNYL-bupivacaine (epidural) 100 ML BAG EPIDURAL (13:42)
[2024-05-28] MEDS: Amnioinfusion- 0.9% NS 1,000 ML IV.SOLN. 1000 ML INTRA-UTER (15:58)
--- NOTE | 2024-05-28 16:24 | PLAC_PTH ---
PATIENT: TAHIRA JACKSON LOC: WP U#:[id number] AGE/SX: 29/F ROOM: WP005 RE05/27/[address]: Dr. Chey Fitch MD : 1995 BED: 1 DIS: 05/30/2024 SPEC #: [id number] RECD: 05/28/24 17:13 STATUS: PAKO RESylvia #: [id number] TEODORO: 05/28/24 16:[address]: Chey Fitch DEPT: SURGICAL PATHOLOGY RECD BY: Namrata Rodriguez ENTERED: 05/31/24 07:47 SP TYPE: PLACENTA OTHR DR: Dr. Shanae Olvera MD Tissues: Placenta, NOS Procedures: Surgery Specimen Level V HEADER OPERATION: Delivery PRE-OP DIAGNOSIS: Hysterectomy TISSUE SUBMITTED: Placenta MICROSCOPIC DIAGNOSIS Cabrera placenta (359 gm): Umbilical cord - Trivascular with no pathologic change. Placental membranes - Mild chronic and focal acute decidual inflammation. Placental disc - Remote infarcts, Pari-[place] change and intervillous congestion. AM: 06/01/2024 MICROSCOPIC DESCRIPTION Slides are reviewed. GROSS DESCRIPTION SPECIMEN: PLACENTA / CLINICAL INFORMATION: Also present in the container is a detached segment of umbilical cord measuring 34.0cm in length and 1.1cm in diameter. A. Weight: 2.28 kg B. Gestational Age: 38weeks C. Sex: Male PLACENTAL WEIGHT (POST FIXATION): 359 gm PLACENTAL DIMENSIONS: 14.0 x 13.0 x 3.5 cm PLACENTAL SHAPE: Usual ovoid PLACENTAL WEIGHT FOR GESTATIONAL AGE: Within 10-99th percentile MEMBRANES - Present A. Insertion: Marginal B. Site of rupture from edge: 6.0 cm from edge of placental disc C. Color of membrane: Dorsey-olvera D. Abnormalities: None UMBILICAL CORD - Present A. Color: Dorsey-olvera B. Insertion: Paracentral C. Length: 25.0 cm D. Diameter: 1.2 cm E. Number of vessels: Three F. Abnormalities: None PLACENTAL DISC - Present A. Color of surface: Dorsey-olvera B. surface abnormalities: None C. Maternal cotyledons: Intact with minimal tears D. Attached retro placental clot: No clot E. Cut surface: Dark red and spongy F. Lesions: Sections reveal multiple dorsey indurated lesions, largest measuring 1.0cm in greatest dimension G. Separate clot: Multiple blood clots weighing 47.0gm and measuring in aggregate 8.0 x 8.0 x 2.5cm. SECTIONS SUBMITTED: 6 cassettes 1. Membrane roll 2. Cord, maternal end, lesion 3. Cord, end, lesion 4. Placental disc, and maternal surfaces, lesion 5. Placental disc, and maternal surfaces, lesion 6. Placental disc, and maternal surfaces, two lesions SJ.mr 05/31/2024 TC:2 CPT: 26589
--- NOTE | 2024-05-28 16:28 | EX.PCM.OBRPT ---
Assessment & Plan (1) (spontaneous vaginal delivery): (2) Single live : Maternal Data Information DIOGENES Calculator Estimated Delivery Date Method Current WG Current Estimate 06/11/24 Manual 38w 0d Final DIOGENES: 06/11/24 Gestational age: 38 0/7 Vaginal Delivery Maternal Presentation Maternal Presentation: Medically Indicated Induction Type of Induction: Pitocin, Narvaez Bulb and Amniotomy Medical Reason for Induction: - (IUGR) Operative Information Date of Procedure: 05/28/24 Pre-Operative Diagnosis: labor Post-Operative Diagnosis: same Surgery / Procedure Performed: Spontaneous Vaginal Delivery Type of Anesthesia: Epidural Special Medications: none Drain: Narvaez to straight drain Estimated Blood Loss: 100 Time of Delivery: 16:17 Findings Description of Procedure: A vigorous male was delivered KRISTI over an intact perineum. A loose nuchal cord x 2 was easily reduced. The remainder the was delivered with maternal pushing and gentle traction only in less than 15 seconds. The Pitocin infusion was initiated for active management of the third stage. The cord was clamped and cut after cord pulsations ceased.. The was attended to by the waiting nursing staff. The placenta was delivered spontaneously and intact. The cervix and vagina were intact. Sponge and needle counts were correct. A vaginal sweep was completed by me. Presentation: KRISTI Amniotic Membrane Rupture Type: Artificial Amniotic Fluid Description: Clear Placental Delivery Description: Spontaneous Placenta Disposition: Sent to Pathology Cord Vessel Description: 3 Vessels Cord Entanglement: Around neck x 2, loose Nuchal Cord Compression: Without compression Infant A Gender: Male (Eastyn) (1 minute): 8 (5 minute): 9 Delayed Cord Clamping: Yes Post Vaginal Delivery Medications Given After Delivery: IV Pitocin Episiotomy Description: None Laceration: None Complication Complications: None Admit VTE Documentation VTE Present on Admission: No VTE Pharm Prophylaxis Ordered: No
[2024-05-28] MEDS: Oxytocin 15 Units/NS 250ml 15 UNITS/250 ML IV.SOLN 83 UNITS IV (16:45)
[2024-05-28 17:47] LABS: Pathology Specimen OB SEE PATHOLOGY REPORT
[2024-05-29] VITALS: BP 111/72; PULSE 82; RESP 16; TEMP 36.9; O2SAT 98
[2024-05-29 03:51] VITALS: BP 116/86; PULSE 95; RESP 16; TEMP 36.7; O2SAT 99
[2024-05-29 08:15] VITALS: BP 117/76; PULSE 94; RESP 16; TEMP 36.8; O2SAT 98
[2024-05-29 12:00] VITALS: BP 110/76; PULSE 85; RESP 16; TEMP 36.7; O2SAT 99
--- NOTE | 2024-05-29 12:05 | PCM.PN.OB ---
Subjective Subjective Doing well per patient and nursing staff. Ambulating and taking PO without difficulty. Voiding and passing flatus. Pain controlled. Denies headache, visual changes, chest pain, shortness of breath, leg pain or increased bleeding. Lochia normal. Objective Data Objective Data Vital Signs: Vital Signs Temp Pulse Resp BP Pulse Ox O2 Del Method 98.2 F 94 16 117/76 98 Room Air 05/29/24 08:15 05/29/24 08:15 05/29/24 08:15 05/29/24 08:15 05/29/24 08:15 05/29/24 08:15 Oxygen Delivery Method Room Air Weight: 285 lb Body Mass Index (BMI) 52.1 Intake & Output: Intake and Output for Last 24 Hours 05/27/24 05/28/24 05/29/24 23:59 23:59 23:59 Intake Total 3333.33 / 3333.33 Output Total 3150 / 3150 300 / 300 Balance 183.33 / 183.33 -300 / -300 Lab / Micro Data 05/27/24 20:05 Physical Exam Const alert and oriented x3 General Appearance: cooperative Orientation / Consciousness: awake, oriented to person, oriented to place and oriented to time Exam Limitations: no limitations HEENT normocephalic Head and Scalp: normal to inspection, normocephalic and atraumatic Face and Sinus: normal facial exam Eyes General Eye: normal appearance of both eyes Neck full ROM Chest Chest: symmetrical chest wall rise Resp normal respiratory effort and normal air movement Auscultation: clear to auscultation bilaterally Cardio regular rate, regular rhythm, S1 normal heart sound, S2 normal heart sound, no murmurs, no rub, no gallops and no clicks GI normal to inspection, nondistended, normoactive bowel sounds and non-tender appearance of the vagina normal Bladder / Kidney Exam: no CVA tenderness Back/Spine normal ROM Extremity normal to inspection and full ROM Skin no rashes or lesions noted Neuro oriented x3, CN's II-XII intact bilaterally and moves all extremities Sensorium / Orientation: awake, alert and oriented to person Motor Exam: clonus absent Deep Tendon Reflexes: Rt Patellar (L4): 2+ and Lt Patellar (L4): 2+ Assessment & Plan (1) (spontaneous vaginal delivery): (2) Positive GBS test: PLAN: Plan 1) Routine PP care 2) Vitals stable 3) Pain management 4) Planning D/C tomorrow
[2024-05-29 19:58] VITALS: BP 120/76; PULSE 78; RESP 16; TEMP 36.7; O2SAT 98
[2024-05-30 02:00] VITALS: BP 104/87; PULSE 72; RESP 16; TEMP 36.8; O2SAT 97
[2024-05-30 08:00] VITALS: BP 109/80; PULSE 89; RESP 16; TEMP 36.4; O2SAT 99
--- NOTE | 2024-05-30 09:29 | PCM.PN.OB ---
Subjective Subjective Doing well per patient and nursing staff. Ambulating and taking PO without difficulty. Voiding and passing flatus. Pain controlled. , services for assistance. Denies headache, visual changes, chest pain, shortness of breath, leg pain or increased bleeding. Lochia normal. Objective Data Objective Data Vital Signs: Vital Signs Temp Pulse Resp BP Pulse Ox O2 Del Method 97.6 F L 89 16 109/80 99 Room Air 05/30/24 08:00 05/30/24 08:00 05/30/24 08:00 05/30/24 08:00 05/30/24 08:00 05/30/24 08:00 Oxygen Delivery Method Room Air Weight: 285 lb Body Mass Index (BMI) 52.1 Intake & Output: Intake and Output for Last 24 Hours 05/28/24 05/29/24 05/30/24 23:59 23:59 23:59 Intake Total 3333.33 / 3333.33 Output Total 3150 / 3150 300 / 300 Balance 183.33 / 183.33 -300 / -300 Lab / Micro Data 05/27/24 20:05 ROS Constitutional Constitutional: Reports systems reviewed and no addt'l complaints, except as documented; Denies headache(s) Eyes Eyes: Denies acute decrease in peripheral vision, blurry vision or change in vision ENT HEENT: Reports systems reviewed and no addt'l complaints, except as documented Cardiovascular Cardiovascular: Denies chest pain or dizziness Respiratory/Chest Respiratory/Chest: Denies cough, dyspnea, dyspnea on exertion, shortness of breath at rest or shortness of breath with exertion Gastrointestinal Gastrointestinal: Denies abdominal pain, diarrhea, nausea or vomiting Genitourinary Genitourinary: Denies abdominal discomfort Musculoskeletal Musculoskeletal: Denies limited range of motion Integumentary Integumentary: Reports systems reviewed and no addt'l complaints, except as documented Neurologic Neurologic: Reports systems reviewed and no addt'l complaints, except as documented Psychiatric Psychiatric: Reports systems reviewed and no addt'l complaints, except as documented Endocrine Endocrinology: Reports systems reviewed and no addt'l complaints, except as documented Hematologic/Lymphatic Hematologic/Lymphatic: Reports systems reviewed and no addt'l complaints, except as documented Allergic/Immunologic Allergic/Immunologic: Reports systems reviewed and no addt'l complaints, except as documented Assessment & Plan (1) (spontaneous vaginal delivery): (2) Lactating mother: PLAN: Plan 1) Routine PP care, PPD#1 2) Vitals stable 3) 4) D/C home today 5) Follow up in 2wk virtual and 6 wk PP
--- NOTE | 2024-05-30 09:32 | PCM.DC.SUM ---
Providers Date of Admission: 05/27/24 Primary Care Physician: Dr. Shanae Olvera MD Reason For Visit: VAG DELIVERY Diagnosis Discharge Diagnosis (1) (spontaneous vaginal delivery): Status: Acute Code(s): O80 - Encounter for full-term uncomplicated delivery (2) Lactating mother: Status: Acute Code(s): Z39.1 - Encounter for care and examination of lactating mother Plan 1) Routine PP care, PPD#1 2) Vitals stable 3) 4) D/C home today 5) Follow up in 2wk virtual and 6 wk PP Medications at Discharge Home Medications vit no.133-ferrous fumarate 28 mg-folic acid 800 mcg tablet () tab PO 04/17/24 acetaminophen 500 mg tablet 1,000 mg (2 x 500 mg) PO Q6H PRN PRN Pain 1-10 Or Fever #0 tabs 05/30/24 ibuprofen 600 mg tablet 600 mg PO Q6H PRN PRN Pain Score 1-10 #0 tabs 05/30/24 Hospital Course Summary of Care Provided Minutes Spent on Discharge: 15 Weight / BMI Weight Weight: 285 lb Body Mass Index (BMI) 52.1 ABG / Lab / Microbiology Data 05/27/24 20:05 D/C Instructions Discharge Diet: No restrictions Discharge Activity: Return to Normal Activity, May Drive, May Shower and May Take a Tub Bath May resume sexual activity in: 6 weeks Weight Bearing Status: Full weight bearing Call your doctor if you observe: Fever of 101 or Higher, Inability to urinate, Using more than 1 pad per hour, Shortness of breath, Chest pain, Increased palpitations (irregular heartbeat), Calf discomfort and Uncontrolled pain Please Follow Up With: Jennifer Maravilla CNM When: 2 week virtual visit and 6 week visit Meaningful Use Info Meaningful Use Meaningful Use Diagnoses (Choose all that apply): None applicable Ischemic Stroke Statin Dosing Therapy Reference: STATIN DOSE THERAPY REFERENCE: * Patients > 75 years receive moderate or high dose statin therapy. * Patients 75 years or YOUNGER should receive HIGH intensity statin dose unless contraindicated. You will be required to document reason for non-treatment if statin daily dose does not meet guidelines. HIGH DOSE STATIN THERAPY DAILY Atorvastatin > than or = to 40 mg Rosuvastatin > than or = to 20 mg Amlodipine + Atorvastatin > than or = to 2.5/40 mg Ezetimibe + Simvastatin 10/80 mg Simvastatin 80mg Discharge Plan Admission Admit Date/Time: 05/27/24 19:17 Primary Reason for Your Visit: Vaginal Delivery Attending Provider: Chey Fitch Primary Care Provider: Shanae Olvera Discharge Orders/Prescriptions Prescriptions: New acetaminophen 500 mg Tablet 1,000 mg PO Q6H PRN PRN (Reason: Pain 1-10 Or Fever) Qty: 0 0RF ibuprofen 600 mg Tablet 600 mg PO Q6H PRN PRN (Reason: Pain Score 1-10) Qty: 0 0RF Continued 28-800 mg-mcg tablet PO Referrals / Follow Up: Shanae Olvera MD [Primary Care Provider] - Disposition Disposition (needs filled in before D/C Order can be placed): Home, Self Care
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
[2024-05-30 13:50] VITALS: BP 123/77; PULSE 83; RESP 16; O2SAT 97
--- NOTE | 2024-06-04 10:49 | NURSING ---
F/up phone performed. No s+s. Lochia minimal. going well overall-- some struggles with latch occasionally, but pt pumping and giving EBM at those times. Denies questions.
== END 2024-05-30 14:10 | disposition home or self-care (01) | DRG 560 ==
PROVIDERS: Advanced Practice Midwife; Admitting Provider Obstetrics & Gynecology; PCP Internal Medicine; Referring Provider Obstetrics & Gynecology; Visit Provider Obstetrics & Gynecology
DX: O36.5930 Maternal care for other known or suspected poor fetal growth, third trimester, not applicable or unspecified (principal); Z37.0 Single live birth; O26.23 Pregnancy care for patient with recurrent pregnancy loss, third trimester; O99.214 Obesity complicating childbirth; O69.81X0 Labor and delivery complicated by cord around neck, without compression, not applicable or unspecified; Z79.82 Long term (current) use of aspirin; O99.824 Streptococcus B carrier state complicating childbirth; Z90.49 Acquired absence of other specified parts of digestive tract; Z3A.37 37 weeks gestation of pregnancy
CPT/HCPCS: 59025; 59050; 85025; 86780; 86850; 86900; 86901; 88307; 99221; J7030; J7120; G0378